=== PATIENT | female | born 2000 | race African-American/Black ===

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

== ENCOUNTER → 2020-06-05 16:03 | Outpatient (CLI) | payer BC, SELFPAY ==
[2020-06-05 17:22] LABS: Basophils % 0.6 % (0.1-2.0); Eosinophils % 0.8 % (0.1-12.0); Hemoglobin 13.9 g/dL (12.2-16.2); Lymphocytes # 1.3 K/mm3 (0.7-4.5); Lymphocytes % 22.6 % (10-50); Mean Corpuscular HGB Conc 32.3 g/dL (31.8-35.4); Mean Corpuscular Hemoglobin 28.5 pg (27.0-31.2); Mean Corpuscular Volume 88.1 fl (81-99); Mean Platelet Volume 8.2 fl (7.4-10.4); Monocytes # 0.8 K/mm3 (0.1-1.0); Monocytes % 13.8 % (1.7-9.3); Neutrophils # 3.5 K/mm3 (1.8-7.8); Neutrophils % 62.2 % (37.0-80.0); Platelet Count 207 K/mm3 (142-424); Red Blood Count 4.88 M/mm3 (4.20-5.40); Red Cell Distribution Width 12.3 % (11.5-17.5); White Blood Count 5.7 K/mm3 (4.5-13.0)
[2020-06-05 18:51] LABS: Strep Scrn Group A (Rapid) Negative (Negative)
[2020-06-07 14:01] LABS: Covid-19 Nasal PCR Sendout Lex POSITIVE
== END ==
PROVIDERS: PCP Nurse Practitioner; Visit Provider Nurse Practitioner
DX: Z20.828 Contact with and (suspected) exposure to other viral communicable diseases (principal); U07.1 COVID-19
CPT/HCPCS: 36415; 85025; 87430; U0004

== ENCOUNTER 2020-11-13 16:42 | Emergency (ER) | payer BC, SELFPAY ==
[2020-11-13 16:43] VITALS: BP 127/88; PULSE 101; RESP 18; TEMP 36.6; O2SAT 99
[2020-11-13 16:44] VITALS: BMI 26.6
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
[2020-11-13 17:01] VITALS: BP 111/90; O2SAT 100
[2020-11-13 17:31] VITALS: BP 119/79
[2020-11-13 17:55] LABS: HCG,Quantitative < 2 mIU/ml (0-5.42)
[2020-11-13 18:01] VITALS: BP 119/66
[2020-11-13 19:00] VITALS: BP 141/89
[2020-11-13 19:20] VITALS: BP 141/89; PULSE 88; RESP 18; TEMP 36.6; O2SAT 98
[2021-01-08 09:59] LABS: POC Glucose,Bedside 85 (70-110)
== END 2020-11-13 19:22 | disposition home or self-care (01) ==
PROVIDERS: Emergency Provider Family Medicine; PCP Family Medicine
DX: S51.012A Laceration without foreign body of left elbow, initial encounter (principal); V58.0XXA Driver of pick-up truck or van injured in noncollision transport accident in nontraffic accident, initial encounter; Y92.488 Other paved roadways as the place of occurrence of the external cause
CPT/HCPCS: 12001; 71045; 73070; 82962; 84702; 99281

== ENCOUNTER 2023-05-28 22:32 | Emergency (ER) | payer BC, SELFPAY ==
[2023-05-28 22:33] VITALS: BP 136/90; PULSE 84; RESP 16; TEMP 36.8; O2SAT 99; BMI 32.5
[2023-05-28 22:45] VITALS: BP 134/96; PULSE 93; O2SAT 97
[2023-05-28 23:08] LABS: Microscopic, Urine URINE MICROSCOPIC (MICROSCOPIC)
[2023-05-28 23:14] LABS: Appearance,Urine CLEAR (Clear); Bilirubin,Urine Negative (Negative); Blood, Urine 1+ (Negative); Color,Urine YELLOW (Yellow); Glucose,Urine (UA) Negative (Negative); Ketones,Urine Negative (Negative); Leukocyte Esterase,Urine 1+ (Negative); Nitrate,Urine Negative (Negative); Protein,Urine TRACE (Negative); Urobilinogen,Urine 0.2 EU/dl (0.2)
[2023-05-28 23:15] VITALS: BP 132/83; PULSE 83; RESP 16; O2SAT 98
[2023-05-28 23:25] LABS: Basophils % 0.3 % (0.1-2.0); Eosinophils # 0.5 K/mm3 (0.0-0.4); Eosinophils % 4.5 % (0.1-12.0); Hematocrit 43.9 % (37.0-47.0); Hemoglobin 15.1 g/dL (12.2-16.2); Lymphocytes # 2.4 K/mm3 (0.7-4.5); Lymphocytes % 20.9 % (10-50); Mean Corpuscular HGB Conc 34.4 g/dL (31.8-35.4); Mean Corpuscular Hemoglobin 30.3 pg (27.0-31.2); Mean Corpuscular Volume 88.2 fl (81-99); Mean Platelet Volume 8.8 fl (7.4-10.4); Monocytes # 0.7 K/mm3 (0.1-1.0); Monocytes % 5.9 % (1.7-9.3); Neutrophils # 7.8 K/mm3 (1.8-7.8); Neutrophils % 68.3 % (37.0-80.0); Platelet Count 316 K/mm3 (142-424); Red Blood Count 4.97 M/mm3 (4.20-5.40); Red Cell Distribution Width 12.8 % (11.5-17.5); White Blood Count 11.4 K/mm3 (4.8-10.8)
[2023-05-28 23:26] LABS: Potassium 3.9 mmoL/L (3.5-5.1); Sodium 140 mmol/L (136-145)
[2023-05-28 23:27] LABS: Chloride 108 mmol/L (98-107)
[2023-05-28 23:28] LABS: Blood Urea Nitrogen 14 mg/dl (7-17); Creatinine Clearance Estimated 200 mL/min (50-200); Estimated Glomerular Filt Rate 125 ml/min (>60); GFR (African American) 151 ML/MIN (>60)
[2023-05-28 23:29] LABS: Albumin Level 4.6 g/dl (3.5-5.0); Albumin/Globulin Ratio 1.4 (1.1-1.8); Globulin 3.2 g/dL (1.3-3.2); Glucose 93 mg/dl (74-100); Total Protein,Serum 7.8 g/dl (6.3-8.2)
[2023-05-28 23:30] VITALS: BP 132/84; PULSE 82; RESP 16; O2SAT 98
[2023-05-28 23:30] LABS: Alanine Aminotransferase 28 U/L (12-78); Alkaline Phosphatase 56 U/L (38-126); Anion Gap 11.9 mEq/L (5-15); Aspartate Amino Transferase 38 U/L (14-36); Bilirubin,Total 0.2 mg/dl (0.2-1.3); Carbon Dioxide 24 mmol/L (22.0-30.0)
[2023-05-28 23:34] LABS: Bacteria,Urine 1+ /lpf
[2023-05-28 23:44] LABS: HCG Qualitative, Serum Negative (Negative)
[2023-05-29] VITALS: BP 124/96; PULSE 83; O2SAT 98
[2023-05-29 00:16] VITALS: BP 130/68; PULSE 81; RESP 16; O2SAT 98
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
[2023-05-29 00:30] VITALS: BP 124/88; PULSE 77; RESP 16; O2SAT 98
[2023-05-29 00:45] VITALS: BP 123/80; PULSE 87; RESP 16; O2SAT 98
--- NOTE | 2023-05-29 00:52 | HMH.EDGENADL ---
Discharge Plan Disposition Patient Disposition: Home, Self-Care Condition: Good Prescriptions Prescriptions: New sulfamethoxazole-trimethoprim 800-160 mg tablet 1 tab PO BID 7 Days Qty: 14 0RF No Action sulfamethoxazole-trimethoprim 1 EACH tablet 1 each PO BID Qty: 10 0RF Referrals Follow up/Referrals: Provider,Referral, [Primary Care Provider] - See instructions Activity Restrictions/Add. Instructions Additional Instructions/Restrictions: Please take antibiotics as prescribed. Please follow-up with your primary care provider. Please return to the emergency department if you develop any new or worsening symptoms or become concerned for your health. Clinical Impressions Clinical Impression: Pyelonephritis Instructions Patient Instructions: DI for Acute Abdominal Pain Discharge ED Provider: Cong Andrews General Adult HPI General Chief complaint: Abdominal Pain Stated complaint: right side abd pain Time Seen by Provider: 05/28/23 23:00 Mode of Arrival: Ambulatory Source of Information: Patient Limitations: No Limitations Description of Symptoms (Recalled from ER Triage Doc. by RN): Presents to ED with c/o RLQ/ right sided flank pain that started today and stated she took Monistat. Patient reports urinary frequency but denies dysuria/hematuria. Denies fevers. Denies taking any meds DIRECT SUPPORT STAFF. History of Present Illness HPI narrative: 22-year-old female, reportedly previously healthy, sexually active, presents with right lower quadrant pain now radiating to the right flank. She reports increased urinary urgency and frequency. Denies hematuria. No reported fevers. She reports the symptoms have been ongoing for the last 6 days. No reported nausea or vomiting or diarrhea. The pain started radiating into the right flank today prompting her presentation to the ER. She denies history of prior urinary tract infection, no history of stones, no history of ovarian pathology. Related Data Previous Rx's Medication Instructions Recorded sulfamethoxazole 800 1 each PO BID #10 tabs 11/13/20 mg-trimethoprim 160 mg tablet sulfamethoxazole 800 1 tab PO BID 7 days #14 tabs 05/29/23 mg-trimethoprim 160 mg tablet Allergies Allergy/AdvReac Type Severity Reaction Status Date / Time No Known Allergies Allergy Verified 11/13/20 16:45 [facility] Disclaimer: The information contained in this section may have been updated after the patient was seen, as this information can be updated by other users. Social History Smoking Status: Current every day smoker alcohol intake: never current occupational status: other Travel in the last 8 weeks: None ROS Obtained: Yes All systems reviewed & no additional complaints except as documented Physical Exam General General appearance: alert and in no apparent distress Head Head exam: atraumatic and normocephalic Eye Eye exam: Present normal appearance, PERRL and EOMI ENT ENT exam: Present normal oropharynx and normal external ear exam Neck Neck exam: Present normal inspection and full ROM Chest Chest inspection: Present normal inspection and symmetric chest wall rise; Absent tenderness Respiratory Respiratory exam: Present normal lung sounds bilaterally; Absent respiratory distress Cardiovascular Cardiovascular exam: Present regular rate and normal rhythm Abdominal Exam Abdominal exam: Present soft and tenderness (Mild right lower quadrant/suprapubic); Absent distention or guarding Extremities Exam Extremities exam: Present normal inspection; Absent edema or joint swelling Back Exam Back exam: Present normal inspection and CVA tenderness (R) Neurological Exam Neurological exam: Present alert and oriented X3; Absent motor sensory deficit Psychiatric Psychiatric exam: Present normal affect and normal mood Skin Skin exam: Present warm, dry and normal color Lymphatic Lymphatic Findings: no adenopathy Medical Decision Making Medical Records Medical
[2023-05-29 01:04] VITALS: BP 123/80; PULSE 87; RESP 16; TEMP 36.6; O2SAT 98
== END 2023-05-29 01:08 | disposition home or self-care (01) ==
PROVIDERS: Emergency Provider Emergency Medicine
DX: N10 Acute pyelonephritis (principal); B95.7 Other staphylococcus as the cause of diseases classified elsewhere; R10.31 Right lower quadrant pain; M54.59 Other low back pain; F17.210 Nicotine dependence, cigarettes, uncomplicated
CPT/HCPCS: 36415; 80053; 81001; 84703; 85025; 87040; 87086; 96365; 99284; J0696

== ENCOUNTER 2023-10-27 14:04 | Emergency (ER) | payer BC, SELFPAY ==
[2023-10-27 14:20] VITALS: BP 99/69; PULSE 99; RESP 18; TEMP 37.1; O2SAT 97; BMI 34.2
--- NOTE | 2023-10-27 14:37 | ED_ITS ---
Discharge Plan Disposition Patient Disposition: Home, Self-Care Condition: Good Prescriptions Prescriptions: New mmjnrfcihrydmts-uzicchkxp-YC [Bromfed DM] 2-30-10 mg/5 mL syrup 10 ml PO Q6H PRN (Reason: cold symptoms) Qty: 200 0RF Referrals Follow up/Referrals: Provider,Referral, [Primary Care Provider] - See instructions Activity Restrictions/Add. Instructions Additional Instructions/Restrictions: * Too late to start Tamiflu. Most effective when started within 48 hours of symptoms onset * Lots of rest * Increase Fluids water, Gatorade, powerade, pedialyte,if in cindy/toddler/child * Alternate Tylenol and / or ibuprofen as discussed for fever, aches, chills Follow up IMMEDIATELY with your family doctor for new or worsening Symptoms OR no noticeable improvement over the next 48-72 hours, 911 for difficulty or breathing * You or your child area contagious until no fever, aches, chills for 24 hours with medication for symptoms * Help Prevent the spread of influenza: * ?Wash your hands often. Use soap and water. Wash your hands after you use the bathroom, change a child's diapers, or sneeze. Wash your hands before you prepare or eat food. Use gel hand cleanser that has 60% alcohol, when soap and water are not available. Do not touch your eyes, nose, or mouth unless you have washed your hands first. * Cover your mouth when you sneeze or cough. Cough into a tissue or the bend of your arm. If you use a tissue, throw it away immediately and wash your hands. * Clean shared items with a germ-killing stove cleaner. Clean table surfaces, doorknobs, and light switches. Do not share towels, silverware, and dishes with people who are sick. Wash bed sheets, towels, silverware, and dishes with soap and water. * Wear a mask over your mouth and nose if you are sick. The face mask may help protect others from becoming infected with the flu. Wear the mask when in common areas of your home or if you seek care with a healthcare provider. * Stay away from others if you are sick. Stay at home until 24 hours after your fever and symptoms are gone. Clinical Impressions Clinical Impression: Influenza Stand Alone Forms Stand Alone Forms: Work/School Release Instructions Patient Instructions: DI for Influenza -- Adult Discharge ED Provider: Gabriela Carroll [facility] [place] General Stated complaint: sinus congestion, fever Mode of Arrival: Ambulatory Source of Information: Patient Limitations: No Limitations Time Seen by Provider: 10/27/23 14:37 Description of Symptoms (Recalled from Triage Doc. by RN): Pt's symptoms are sinus pressure, and fever. HEENT Symptoms (Recalled from RN notes): Yes Resp Symptoms (Recalled from RN notes): No Skin Symptoms (Recalled from RN notes): No MS Symptoms (Recalled from RN notes): No Functional Status (Recalled from RN notes): n/a History of Present Illness Provider Complaint: Patient states that her room mate has influenza and now she is having symptoms States that she has been having fever, chills, nasal congestion and fever so today when she came in to get checked for flu Related Data Previous Rx's Medication Instructions Recorded aklfxznvdgvxuch-tyykejzombqwdmg-AI 10 ml PO Q6H PRN cold symptoms 10/27/23 2 mg-30 mg-10 mg/5 mL oral syrup #200 mL (Bromfed DM) Allergies Allergy/AdvReac Type Severity Reaction Status Date / Time No Known Allergies Allergy Verified 10/27/23 14:25 Worker's Comp Is this a Worker's Comp case?: No [facility] Disclaimer: The information contained in this section may have been updated after the patient was seen, as this information can be updated by other users. Social History (Updated 05/29/23 @ 01:34 by Cong Andrews MD) Smoking Status: Current every day smoker alcohol intake: never current occupational status: other Travel in the last 8 weeks: None ROS Obtained: Yes All systems reviewed & no additional complaints except as documented and Yes Systems reviewed as appropriate & no additional complaints except as documented Constitutional Constitutional: Reports system reviewed and no additional complaints, except as documented, Reports as per HPI, Reports body ache, Reports chills, Reports fever(s) and Reports headache(s) ENT Ears, Nose, Mouth, and Throat: Reports system reviewed and no additional complaints, except as documented, Reports as per HPI, Reports headache(s), Reports nasal congestion and Reports nasal discharge Cardiovascular Cardiovascular: Reports system reviewed and no additional complaints, except as documented and Reports as per HPI Respiratory Respiratory: Reports system reviewed and no additional complaints, except as documented and Reports as per HPI Gastrointestinal Gastrointestingal: Reports system reviewed and no additional complaints, except as documented and as per HPI Neurologic Neurologic: Reports headache(s) Physical Exam General General appearance: alert and in no apparent distress ENT ENT exam: Present mucous membranes moist Expanded ENT Exam Nose exam: Absent sinus tenderness Respiratory Respiratory exam: Present normal lung sounds bilaterally; Absent respiratory distress or wheezes Cardiovascular Cardiovascular exam: Present regular rate, normal rhythm and normal heart sounds Abdominal Exam Abdominal exam: Present soft and normal bowel sounds; Absent distention or tenderness Neurological Exam Neurological exam: Present alert, oriented X3 and normal gait Medical Decision Making Solitario Inquiry Pt receiving controlled substance: No Solitario was queried for this patient: No Vital Signs: 10/27/23 14:20 Temperature 98.7 F Temperature Source Oral Pulse Rate [Right Radial] 99 H Respiratory Rate 18 Blood Pressure [Right Arm] 99/69 L Blood Pressure Mean [Right Arm] 79 Blood Pressure Source [Right Arm] Automatic Cuff Blood Pressure Position [Right Arm] Sitting 02 Sat by Pulse Oximetry 97 Oxygen Delivery Method Room Air Lab Data Lab results reviewed: Yes I reviewed the patient's lab results. Medical Decision Narrative: Denies preganancy on her period now
[2023-10-27 14:39] LABS: UTC Influenza A Antigen Negative (Negative); UTC Influenza B Antigen Positive (Negative)
[2023-10-27 14:53] VITALS: BP 99/69; PULSE 99; RESP 18; TEMP 37.1; O2SAT 97
== END 2023-10-27 14:53 | disposition home or self-care (01) ==
PROVIDERS: Emergency Provider Nurse Practitioner
DX: J10.1 Influenza due to other identified influenza virus with other respiratory manifestations (principal); R50.9 Fever, unspecified; R51.9 Headache, unspecified; R09.81 Nasal congestion; F17.210 Nicotine dependence, cigarettes, uncomplicated
CPT/HCPCS: 87804; 99204; 99212; G0463

== ENCOUNTER 2024-10-13 17:57 | Emergency (ER) | payer BC, SELFPAY ==
[2024-10-13 18:17] VITALS: BP 117/69; PULSE 87; RESP 18; TEMP 36.9; O2SAT 100; BMI 30.9
[2024-10-13 18:31] LABS: Microscopic, Urine URINE MICROSCOPIC (MICROSCOPIC)
--- NOTE | 2024-10-13 18:48 | ED_ITS ---
Discharge Plan Disposition Patient Disposition: Home, Self-Care Condition: Good Prescriptions Prescriptions: New nitrofurantoin monohyd/m-cryst [Macrobid] 100 mg capsule 100 mg PO BID 5 Days Qty: 10 0RF Rx Instructions: must administer with a meal/food No Action sertraline [Zoloft] 50 mg tablet 50 mg PO DAILY Qty: 30 1RF Referrals Follow up/Referrals: Provider,Referral, MD [Primary Care Provider] - See instructions Activity Restrictions/Add. Instructions Additional Instructions/Restrictions: Today your evaluated in the emergency department. Your test was negative. Your urine is infected. Please take your antibiotic as directed. You may check your additional results on your portal og. Follow-up with your PCP within 7 days. Please return to the ED for worsening of condition. Clinical Impressions Clinical Impression: Urinary tract infection Qualifiers: Urinary tract infection type: site unspecified Hematuria presence: with hematuria Qualified Code(s): N39.0 - Urinary tract infection, site not specified Instructions Patient Instructions: DI for Urinary Tract Infection (UTI) Print Language Print Language: Tongan Discharge ED Provider: Nik Galvan General Adult HPI <Tyra Alfaro APRN - Last Filed: 10/13/24 20:42> General Chief complaint: Urogenital-Female Stated complaint: Lower back pain,right side pain,? UTI Time Seen by Provider: 10/13/24 18:25 Mode of Arrival: Ambulatory Source of Information: Patient Description of Symptoms (Recalled from ER Triage Doc. by RN): Pt presents for e valuation of possible UTI. Pt states she has frequent urination, denies pain with voiding. Pt states urine appears cloudy Related Data Previous Rx's ?Medication ?Instructions ?Recorded sertraline 50 mg tablet (Zoloft) 50 mg PO DAILY #30 tabs 09/20/24 nitrofurantoin 100 mg PO BID 5 days #10 caps 10/13/24 monohydrate/macrocrystals 100 mg capsule (Macrobid) Allergies Allergy/AdvReac Type Severity Reaction Status Date / Time No Known Allergies Allergy Verified 09/22/24 09:05 PFSH <Tyra Alfaro APRN - Last Filed: 10/13/24 20:42> PFS Disclaimer: The information contained in this section may have been updated after the patient was seen, as this information can be updated by other users. Medical History (Updated 10/13/24 @ 19:53 by Tyra Alfaro APRN) Generalized anxiety disorder Surgical History (Updated 09/20/24 @ 10:37 by Sarah Varghese APRN) History of tonsillectomy Social History (Updated 09/20/24 @ 10:37 by Sarah Varghese APRN) Smoking Status: Current every day smoker tobacco type: e-cigarettes second hand exposure: No alcohol intake: current alcohol intake frequency: a few times a week counseling given: No substance use type: marijuana counseling given: No current occupational status: employed Travel in the last 8 weeks: None adopted: No caregiver/support person: No foster care: No household members: significant other housing: apartment lives independently: Yes marital status: single number of children: 0 number of grandchildren: 0 education level: high school current occupation: car salesmen at [employer] Recent Travel: No sexually active: Yes caffeine: Yes physical activity: none working smoke detector in home: Yes fire extinguisher in home: No carbon monox detector in home: No firearms in home: No do you feel safe at home: Yes victim of physical abuse: No victim of emotional abuse: No victim of sexual abuse: No would you like helpful sources: No Have you lived/traveled outside US in past 30 days?: No Contact w/someone who lives/traveled outside US past 30 days?: No Exposure to someone with infectious disease in past 14 days?: No Do you have a fever (greater than 100.4 F or 38 C)?: No Have you tested positive for COVID-19: No Exposed to someone with COVID-19 in past 14 days?: No Do you have a sore throat?: No Do you have a cough?: No Do you have any weakness?: No Do you have any diarrhea?: No Are you experiencing any unusual bleeding?: No Do you have any muscle aches/pain?: No Do you have any abdominal pain?: No Are you experiencing loss of taste or smell?: No Other Medical History Have you received the Pneumonia Vaccine: No <Tyra Alfaro APRN - Last Filed: 10/13/24 20:42> ROS Obtained: Yes Systems reviewed as appropriate & no additional complaints except as documented Physical Exam <Tyra Alfaro APRN - Last Filed: 10/13/24 20:42> General General appearance: alert and in no apparent distress Head Head exam: atraumatic and normocephalic Eye Eye exam: Present normal appearance and PERRL ENT ENT exam: Present normal exam Neck Neck exam: Present normal inspection Chest Chest inspection: Present normal inspection and symmetric chest wall rise; Absent tenderness Respiratory Respiratory exam: Present normal lung sounds bilaterally Cardiovascular Cardiovascular exam: Present regular rate Abdominal Exam Abdominal exam: Present soft and normal bowel sounds; Absent tenderness Extremities Exam Extremities exam: Present normal inspection and full ROM Back Exam Back exam: Present normal inspection and full ROM Neurological Exam Neurological exam: Present alert and oriented X3 Psychiatric Psychiatric exam: Present normal affect and normal mood Skin Skin exam: Present warm and dry Medical Decision Making <Tyra Alfaro APRN - Last Filed: 10/13/24 20:42> Medical Records Screening: Per USPSTF and CDC recommendations, given the prevalence of disease in our region, it is our hospital?s policy to screen for HIV and viral Hepatitis for all patients aged 18 and over and those with ongoing risk factors. Solitario Inquiry Pt receiving controlled substance: No Solitario was queried for this patient: No Vital Signs: 10/13/24 18:17 10/13/24 19:00 10/13/24 20:02 Temperature 98.4 F 98 F Temperature Source Temporal Artery Scan Pulse Rate 89 86 Pulse Rate [Right] 87 Respiratory Rate 18 14 Blood Pressure 125/81 117/66 Blood Pressure [Right Arm] 117/69 Blood Pressure Mean 92 Blood Pressure Mean [Right Arm] 85 Blood Pressure Source [Right Arm] Automatic Cuff Blood Pressure Position Sitting Blood Pressure Position [Right Arm] Sitting 02 Sat by Pulse Oximetry 100 99 Oxygen Delivery Method Room Air Room Air Lab Data Lab Results 10/13/24 18:28: Urine Color Yellow, Urine Appearance Cloudy, Urine pH 7.5, Ur Specific Compton 1.025, Urine Protein Trace A, Urine Glucose (UA) Negative, Urine Ketones Negative, Urine Blood Trace A, Urine Nitrate Negative, Urine Bilirubin Negative, Urine Urobilinogen 0.2, Ur Leukocyte Esterase 2+ A, Urine RBC 5-10, Urine WBC Tntc, Ur Squamous Epith Cells 10-20, Urine Bacteria 2+, Urine HCG, Qual Negative Orders (Tests/Meds): ED MEDICATIONS Discontinued Medications Generic Name Dose Route Start Last Admin Trade Name Freq PRN Reason Stop Dose Admin Nitrofurantoin Macrocrystals 100 mg 03/14/25 19:54 10/13/24 19:59 Nitrofurantoin 100mg Capsule PO 10/13/24 19:55 100 mg ONCE ONE Administration ORDERS Category Date Time Status Urinalysis and Microscopic Stat Lab 10/13/24 18:28 Completed Urine Chlam/Gono/Trich, MIGDALIA Stat Lab 10/13/24 18:28 Received Urine , HCG Qual. Stat Lab 10/13/24 18:28 Completed Urine Culture Stat Micro 10/13/24 18:28 Received Medical Decision Narrative: In summary, patient is a 24-year-old female no significant PMHx who presents to the ED for suprapubic pain, dysuria and right flank pain x 4 days. Patient states she took an ydnz-azg-yfjpder test that told her she had a UTI. When asked about STD possibility patient is unsure but agrees to testing. Upon initial exam, patient is alert, oriented and cooperative. Patient is hemodynamically stable. Physical exam unremarkable, no tenderness, no flank tenderness. I discussed with patient that we can check a urine and a urine test and she is agreeable to that. She denies any additional complaints at this time. Denies fever, chills, body aches, headache, visual disturbances, chest pain, shortness of breath, nausea, vomiting. Differential diagnosis includes Initial workup will be conducted with hematologic labs, imaging. Initial inventions include Initial workup reviewed by me. Urine remarkable for trace protein, trace blood, 2+ leuks, 2+ bacteria. Discussed with patient that she has a urinary tract infection, advised her that we will start Macrobid prescription. Advised her to increase fluid intake. Continue to take acetaminophen and ibuprofen [id number] for symptomatic relief. Advised her that her STD testing will be resulted tomorrow on her portal og and that she can do that. Advised patient that since her pharmacy is closed tonight we will give her 1 dose of Macrobid here. She is able to tolerate PO. She is hemodynamically stable. Ambulatory without difficulty from the ED. <Nik Galvan MD - Last Filed: 10/13/24 21:23> Vital Signs: 10/13/24 18:17 10/13/24 19:00 10/13/24 20:02 Temperature 98.4 F 98 F Temperature Source Temporal Artery Scan Pulse Rate 89 86 Pulse Rate [Right] 87 Respiratory Rate 18 14 Blood Pressure 125/81 117/66 Blood Pressure [Right Arm] 117/69 Blood Pressure Mean 92 Blood Pressure Mean [Right Arm] 85 Blood Pressure Source [Right Arm] Automatic Cuff Blood Pressure Position Sitting Blood Pressure Position [Right Arm] Sitting 02 Sat by Pulse Oximetry 100 99 Oxygen Delivery Method Room Air Room Air Lab Data Lab Results 10/13/24 18:28: Urine Color Yellow, Urine Appearance Cloudy, Urine pH 7.5, Ur Specific Compton 1.025, Urine Protein Trace A, Urine Glucose (UA) Negative, Urine Ketones Negative, Urine Blood Trace A, Urine Nitrate Negative, Urine Bilirubin Negative, Urine Urobilinogen 0.2, Ur Leukocyte Esterase 2+ A, Urine RBC 5-10, Urine WBC Tntc, Ur Squamous Epith Cells 10-20, Urine Bacteria 2+, Urine HCG, Qual Negative Orders (Tests/Meds): ED MEDICATIONS Discontinued Medications Generic Name Dose Route Start Last Admin Trade Name Freq PRN Reason Stop Dose Admin Nitrofurantoin Macrocrystals 100 mg 10/13/24 19:54 10/13/24 19:59 Nitrofurantoin 100mg Capsule PO 10/13/24 19:55 100 mg ONCE ONE Administration ORDERS Category Date Time Status Urinalysis and Microscopic Stat Lab 10/13/24 18:28 Completed Urine Chlam/Gono/Trich, MIGDALIA Stat Lab 10/13/24 18:28 Received Urine , HCG Qual. Stat Lab 10/13/24 18:28 Completed Urine Culture Stat Micro 10/13/24 18:28 Received Medical Decision Narrative: In summary, patient is a 24-year-old female no significant PMHx who presents to the ED for suprapubic pain, dysuria and right flank pain x 4 days. Patient states she took an qrzy-msl-poligeg test that told her she had a UTI. When asked about STD possibility patient is unsure but agrees to testing. Upon initial exam, patient is alert, oriented and cooperative. Patient is hemodynamically stable. Physical exam unremarkable, no tenderness, no flank tenderness. I discussed with patient that we can check a urine and a urine test and she is agreeable to that. She denies any additional complaints at this time. Denies fever, chills, body aches, headache, visual disturbances, chest pain, shortness of breath, nausea, vomiting. Differential diagnosis includes Initial workup will be conducted with hematologic labs, imaging. Initial inventions include Initial workup reviewed by me. Urine remarkable for trace protein, trace blood, 2+ leuks, 2+ bacteria. Discussed with patient that she has a urinary tract infection, advised her that we will start Macrobid prescription. Advised her to increase fluid intake. Continue to take acetaminophen and ibuprofen [id number]-[id number] for symptomatic relief. Advised her that her STD testing will be resulted tomorrow on her portal og and that she can do that. Advised patient that since her pharmacy is closed tonight we will give her 1 dose of Macrobid here. She is able to tolerate PO. She is hemodynamically stable. Ambulatory without difficulty from the ED. I was consulted by the OG, and we discussed the complexity of the problems being addressed. I approved the treatment and management plan for this patient's care in the Emergency Department, thus performing a substantive portion of the medical decision making. Nik Galvan MD Critical Care <Tyra Alfaro APRN - Last Filed: 10/13/24 20:42> Critical Care Time Critical Care Time: No
[2024-10-13 19:00] VITALS: BP 125/81; PULSE 89; O2SAT 99
[2024-10-13 19:06] LABS: Urine Pregnancy, HCG Qual. Negative (Negative)
[2024-10-13 19:35] LABS: Appearance,Urine Cloudy (Clear); Color,Urine Yellow (Yellow); Glucose,Urine (UA) Negative (Negative); PH,Urine 7.5 (5.0-8.5); Protein,Urine Trace (Negative); Specific Gravity, Urine 1.025 (1.005-1.030)
[2024-10-13 19:36] LABS: Bilirubin,Urine Negative (Negative); Blood, Urine Trace (Negative); Ketones,Urine Negative (Negative); Nitrate,Urine Negative (Negative); Urobilinogen,Urine 0.2 EU/dl (0.2)
[2024-10-13 19:37] LABS: Leukocyte Esterase,Urine 2+ (Negative); WBC,Urine TNTC #/hpf (0-3)
[2024-10-13 19:38] LABS: Bacteria,Urine 2+ /lpf
[2024-10-13] MEDS: NITROFURANTOIN 100MG CAPSULE 100 MG PO (19:59)
[2024-10-13 20:02] VITALS: BP 117/66; PULSE 86; RESP 14; TEMP 36.6; O2SAT 100
[2024-10-15 06:19] LABS: Chlamydia trachomatis Negative (Negative); Neisseria gonorrhoeae Negative (Negative); Trichomonas vaginalis Negative (Negative)
--- NOTE | 2024-10-15 14:01 | PC.NURSE ---
discussed urine culture with , no new orders
== END 2024-10-13 20:03 | disposition home or self-care (01) ==
PROVIDERS: Nurse Practitioner; Emergency Provider Emergency Medicine
DX: N39.0 Urinary tract infection, site not specified (principal); R35.0 Frequency of micturition; R82.998 Other abnormal findings in urine; F17.290 Nicotine dependence, other tobacco product, uncomplicated
CPT/HCPCS: 81001; 81025; 87086; 87088; 87186; 87491; 87591; 87661; 99283

== ENCOUNTER 2025-01-04 10:23 | Emergency (ER) | payer BC, SELFPAY ==
[2025-01-04 10:34] VITALS: BP 146/97; PULSE 94; RESP 20; TEMP 36.8; O2SAT 98; BMI 30.9
[2025-01-04 10:37] VITALS: BMI 30.9
[2025-01-04 10:44] LABS: Coronavirus 19, PCR Not Detected (NotDetected); Influenza A, PCR Not Detected (NotDetected); Influenza B, PCR Not Detected (NotDetected)
[2025-01-04 10:55] LABS: Strep Scrn Group A (Rapid) Negative (Negative)
[2025-01-04 11:01] VITALS: BP 121/102; PULSE 87; O2SAT 94
--- NOTE | 2025-01-04 11:27 | ED_ITS ---
Discharge Plan Disposition Patient Disposition: Home, Self-Care Condition: Good Prescriptions Prescriptions: New fluticasone propionate [Flonase Allergy Relief] 50 mcg/actuation spray,suspension 1 spray intranasal DAILY Qty: 16 0RF Rx Instructions: administer into each nostril cetirizine [Zyrtec] 10 mg tablet 10 mg PO DAILY Qty: 30 0RF No Action desvenlafaxine succinate [Pristiq] 50 mg tablet extended release 24 hr 50 mg PO DAILY Qty: 30 2RF sertraline [Zoloft] 50 mg tablet 50 mg PO DAILY Qty: 30 1RF Referrals Follow up/Referrals: Provider,Referral, MD [Primary Care Provider, Medical] - See instructions Activity Restrictions/Add. Instructions Additional Instructions/Restrictions: You were evaluated in the emergency department today. You are negative for COVID, flu, and strep. We feel you likely have a viral upper respiratory infection as a cause of your symptoms. We prescribed you Zyrtec and Flonase for supportive care. You may also take Tylenol and ibuprofen as needed for pain/fever as well as ufpn-rpb-nbznesa cold and flu medications. Most upper respiratory infections are viral in nature, so we do not treat these with antibiotics. Your body will fight it off and it should resolve on its own. If symptoms persist beyond 7 to 10 days or you have acute worsening of congestion and sinus pain, it is possible you could develop a secondary bacterial infection. If that happens, seek reevaluation, as you may need antibiotic at that time for bacterial sinusitis. It is okay for you to return to work today, but we gave you a work excuse just in case. Clinical Impressions Clinical Impression: Viral URI Stand Alone Forms Stand Alone Forms: Work/School Release Instructions Patient Instructions: DI for Viral Upper Respiratory Infection -- Adult, DI for Viral Syndrome Print Language Print Language: Senegalese Discharge ED Provider: Cathy Costa General Adult HPI General Chief complaint: Upper Respiratory Infection Stated complaint: sinus congestion, sore throat, headache Time Seen by Provider: 01/04/25 10:42 Mode of Arrival: Ambulatory Source of Information: Patient Description of Symptoms (Recalled from ER Triage Doc. by RN): pt is here for uri s/s since wednesday night History of Present Illness HPI narrative: This patient is a 24-year-old female without significant past medical history presenting to the emergency department for evaluation with concern for sore throat, headache, congestion since Wednesday night. No other concerns or c omplaints noted at this time. She was not sure if it was allergies or a viral infection and comes in seeking viral testing to see if it safe for her to return to work Related Data Previous Rx's ?Medication ?Instructions ?Recorded sertraline 50 mg tablet (Zoloft) 50 mg PO DAILY #30 ta bs 11/28/24 desvenlafaxine succinate 50 mg 50 mg PO DAILY #30 tabs 12/22/24 tablet,extended release 24 hr (Pristiq) cetirizine 10 mg tablet (Zyrtec) 10 mg PO DAILY #30 ta bs 01/04/25 fluticasone propionate 50 1 spray intranasal DAILY #16 grams 01/04/25 mcg/actuation nasal spray,suspension (Flonase Allergy Relief) Allergies Allergy/AdvReac Type Severity Reaction Status Date / Time No Known Allergies Allergy Verified 12/21/24 09:02 [facility] Disclaimer: The information contained in this section may have been updated after the patient was seen, as this information can be updated by other users. Medical History Generalized anxiety disorder Surgical History History of tonsillectomy Social History Smoking Status: Never smoker second hand exposure: No alcohol intake: current alcohol intake frequency: a few times a week counseling given: No substance use type: marijuana counseling given: No current occupational status: employed Travel in the last 8 weeks?: None adopted: No caregiver/support person: No foster care: No household members: significant other housing: apartment lives independently: Yes marital status: single number of children: 0 number of grandchildren: 0 education level: high school current occupation: car salesmen at [employer] Recent Travel: No sexually active: Yes caffeine: Yes physical activity: none working smoke detector in home: Yes fire extinguisher in home: No carbon monox detector in home: No firearms in home: No do you feel safe at home: Yes victim of physical abuse: No victim of emotional abuse: No victim of sexual abuse: No would you like helpful sources: No Have you lived/traveled outside US in past 30 days?: No Contact w/someone who lives/traveled outside US past 30 days?: No Exposure to someone with infectious disease in past 14 days?: No Do you have a fever (greater than 100.4 F or 38 C)?: No Have you tested positive for COVID-19?: No Exposed to someone with COVID-19 in past 14 days?: No Do you have a sore throat?: No Do you have a cough?: No Do you have any weakness?: No Do you have any diarrhea?: No Are you experiencing any unusual bleeding?: No Do you have any muscle aches/pain?: No Do you have any abdominal pain?: No Are you experiencing loss of taste or smell?: No Other Medical History Have you received the Pneumonia Vaccine: No ROS Obtained: Yes All systems reviewed & no additional complaints except as documented Physical Exam General General appearance: alert and in no apparent distress Head Head exam: atraumatic and normocephalic Eye Eye exam: Present normal appearance, PERRL and EOMI ENT ENT exam: Present normal exam, normal oropharynx, mucous membranes moist and normal external ear exam Neck Neck exam: Present normal inspection, full ROM and trachea midline; Absent tenderness Chest Chest inspection: Present normal inspection and symmetric chest wall rise; Absent tenderness Respiratory Respiratory exam: Present normal lung sounds bilaterally; Absent respiratory distress, wheezes, stridor or accessory muscle use Cardiovascular Cardiovascular exam: Present regular rate and normal rhythm Abdominal Exam Abdominal exam: Present soft; Absent distention, tenderness or guarding Extremities Exam Extremities exam: Present normal inspection, full ROM and normal capillary refill; Absent tenderness or edema Back Exam Back exam: Present normal inspection and full ROM; Absent tenderness Neurological Exam Neurological exam: Present alert, oriented X3, CN II-XII intact and normal gait; Absent motor sensory deficit Psychiatric Psychiatric exam: Present normal affect and normal mood Skin Skin exam: Present warm and dry Medical Decision Making Medical Records Medical records reviewed: Yes I reviewed the patient's medical records. Screening: Per USPSTF and CDC recommendations, given the prevalence of disease in our region, it is our hospital?s policy to screen for HIV and viral Hepatitis for all patients aged 18 and over and those with ongoing risk factors. Solitario Inquiry Pt receiving controlled substance: No Vital Signs: 01/04/25 10:34 01/04/25 11:01 Temperature 98.2 F Temperature Source Oral Pulse Rate 87 Pulse Rate [Left Radial] 94 H Respiratory Rate 20 Blood Pressure 121/102 H Blood Pressure [Right Arm] 146/97 H Blood Pressure Mean [Right Arm] 113 02 Sat by Pulse Oximetry 98 94 L Oxygen Delivery Method Room Air Lab Data Lab results reviewed: Yes I reviewed the patient's lab results. Lab Results 01/04/25 10:39: SARS-CoV-2 (PCR) Not detected, Influenza A Untype (PCR) Not detected, Influenza Type B (PCR) Not detected, Group A Strep Rapid Negative Orders (Tests/Meds): ORDERS Category Date Time Status Rapid PCR Covid and Flu A/B Stat Lab 01/04/25 10:39 Completed Strep Scrn Group A (Rapid) Stat Lab 01/04/25 10:39 Completed Strep Screen Confirmation Stat Micro 01/04/25 10:39 Received Medical Decision Narrative: In summary, this patient is a 24-year-old female presenting to the Emergency Department for evaluation of headache, sore throat, congestion since Wednesday. Differential diagnoses considered include but are not limited to viral syndrome, bacterial sinusitis, pneumonia, strep pharyngitis. Ruling out the most morbid conditions drove assessment. On exam, the patient is very well-appearing. Symptoms had only been going on about 4 days at this point, so I feel it is most likely to be viral. No mucopurulence or significant sinus tenderness to palpation. Workup included COVID/flu swab and strep swab, which were all negative. Given this, I feel the patient is appropriate for discharge home with prescriptions for Flonase and Zyrtec and instructions for supportive care. She was given strict return precautions and was discharged after all questions were answered Critical Care Critical Care Time Critical Care Time: No
[2025-01-04 11:28] VITALS: BP 120/90; PULSE 60; RESP 98; TEMP 36.8
== END 2025-01-04 11:29 | disposition home or self-care (01) ==
PROVIDERS: Emergency Provider Emergency Medicine
DX: R51.9 Headache, unspecified (principal); R07.0 Pain in throat; R09.81 Nasal congestion; J06.9 Acute upper respiratory infection, unspecified
CPT/HCPCS: 87430; 87636; 99283